=== PATIENT | male | born 1965 | race Caucasian/White ===

== ENCOUNTER → 2018-04-09 | Outpatient (CLI) | payer BC ==
--- NOTE | 2018-04-09 08:58 | US ---
EXAMINATION TYPE: US liver DATE OF EXAM: 04/09/2018 COMPARISON: NONE CLINICAL HISTORY: R74.0 Nonspecific elevation of levels of transamin. EXAM MEASUREMENTS: Liver Length: 19.1 cm Gallbladder Wall: Surgically absent CBD: 1.0 cm Right Kidney: 11.5 x 4.1 x 5.1 cm Pancreas: portions of head and tail obscured by bowel gas Liver: Increased attenuation, decreased visualization of vessels suggestive of fatty infiltrate, hep atomegally Gallbladder: Surgically absent Evidence for sonographic Wallace's sign: no CBD: wnl Right Kidney: wnl IMPRESSION: 1. Hepatomegaly with underlying fatty hepatic infiltration.
== END | disposition home or self-care (01) ==
LOC: RADUSWWP 07:26
PROVIDERS: ATTEND Family Medicine
DX: K76.0 Fatty (change of) liver, not elsewhere classified (principal)
CPT/HCPCS: 76705

== ENCOUNTER 2019-07-27 06:42 | Day surgery (SDC) | payer BC ==
[2019-07-24 09:21] VITALS: BMI 29.5
[~2019-07-27 06:42] MED LIST: LACTATED RINGERS 1,000 ML IV SCH; LIDOCAINE 1% 20 ML VIAL (10MG/ML) FOR IV START INTRADERMA PRN
[2019-07-27 07:08] VITALS: TEMP 98.4
[2019-07-27 07:17] LABS: Glucose,Whole Blood 148 mg/dL (75-99)
[2019-07-27] MEDS ORDERED: PROPOFOL 10 MG/ML 20 ML VIAL IV ONE (07:30)
[2019-07-27] MEDS ORDERED: LIDOCAINE 1% INJ 10MG/ML (20 ML MDV) ONE (07:30)
[2019-07-27 08:06] VITALS: RESP 16
--- NOTE | 2019-07-27 08:07 | P.PCN ---
Date of Procedure: 07/27/19 Description of Procedure: BRIEF HISTORY: Patient is a 54-year-old pleasant male scheduled for an elective colonoscopy as a part of evaluation after episode of diverticulitis. Recent episode of diverticulitis approximately 8 weeks ago treated with antibiotic therapy. He reports 2 colonoscopies in the past with polyps found on the first colonoscopy in the last colonoscopy occurring approximately 4 years ago. PROCEDURE PERFORMED: Colonoscopy with polypectomy. PREOPERATIVE DIAGNOSIS: Diverticulitis, personal history of colon polyps, last colonoscopy 4 years ago. ESTIMATED BLOOD LOSS: Minimal. IV sedation per Anesthesia. PROCEDURE: After informed consent was obtained, the patient, was brought into the endoscopy unit. IV sedation was administered by Anesthesia under continuous monitoring. Digital rectal examination was normal. Initially the Olympus CF-190 flexible video colonoscope was then inserted in the rectum, gradually advanced into the cecum without any difficulty. Careful examination was performed as the scope was gradually being withdrawn. Ileocecal valve and the appendiceal orifice were visualized and appeared normal. Prep was excellent. Mucosa of the cecum, ascending colon, transverse colon, descending colon, sigmoid colon, and rectum appeared normal. Multiple small diverticula noted throughout the entire colon. Diminutive 2 mm sigmoid polyp removed with cold forcep polypectomy. Small 3 mm sigmoid polyp removed with cold forcep polypectomy. Retroflexion was performed in the rectum and no lesions were seen, with mild internal hemorrhoids noted. The patient tolerated the procedure well. IMPRESSION: Mild pandiverticulosis. 2 small sessile sigmoid polyps removed with cold forcep polypectomy. RECOMMENDATIONS: Findings of this examination were discussed with the patient and his . Okay to resume high-fiber diet. Okay to resume medications. Anticipate repeat colonoscopy in 5 years for history of colon polyps, pathology from polypectomies.
[2019-07-27 08:16] VITALS: BP 131/77; PULSE 65
== END 2019-07-27 08:32 | disposition home or self-care (01) ==
LOC: ORWHC2ENDO 06:42
PROVIDERS: ATTEND Internal Medicine
DX: K63.5 Polyp of colon (principal); K64.8 Other hemorrhoids; Z86.010 Personal history of colon polyps; I10 Essential (primary) hypertension; E78.5 Hyperlipidemia, unspecified; E11.9 Type 2 diabetes mellitus without complications; Z79.84 Long term (current) use of oral hypoglycemic drugs; Z79.899 Other long term (current) drug therapy; Z88.6 Allergy status to analgesic agent
CPT/HCPCS: 88305; 45380; J2001; J2704

== ENCOUNTER 2022-02-04 06:58 | Emergency (ER) | payer BC ==
[2022-02-04 07:05] VITALS: TEMP 97.4
[2022-02-04] MEDS ORDERED: SODIUM CHLORIDE 0.9% 1,000 ML IV STA (07:29)
--- NOTE | 2022-02-04 07:50 | ED ---
Abdominal Pain HPI - General Chief Complaint: Abdominal Pain Stated Complaint: LT flank pain, diverticulitis Time Seen by Provider: 02/04/22 07:05 Source: patient, RN notes reviewed Mode of arrival: ambulatory Limitations: no limitations - History of Present Illness Initial Comments: This a 56-year-old male presents emergency Department with chief complaint of left-sided abdominal pain. Patient states that this started a few days ago he is placed on Cipro and Flagyl by PCP she has a long history of diverticulitis. Patient states pains into a slightly different. Patient has no dysuria no hematuria no urinary frequency no symptom diarrhea constipation or melanotic or hematochezia. Patient states that he had some nausea no vomiting denies any ch est pain shortness of breath patient had prior cholecystectomy 11 years ago. - Related Data Home Medications Medication Instructions Recorded Confirmed Atorvastatin [Lipitor] 40 mg PO DAILY 07/24/19 07/27/19 lisinopriL [Zestril] 10 mg PO QAM 07/24/19 07/27/19 metFORMIN HCL [Glucophage] 500 mg PO BID 07/24/19 07/27/19 Allergies Allergy/AdvReac Type Severity Reaction Status Date / Time ibuprofen Allergy Anaphylaxis Verified 02/04/22 07:01 Review of Systems ROS Statement: Those systems with pertinent positive or pertinent negative responses have been documented in the HPI. ROS Other: All systems not noted in ROS Statement are negative. Past Medical History Past Medical History: Diabetes Mellitus, Hyperlipidemia, Hypertension Additional Past Medical History / Comment(s): hx of diverticulitis, hx of colon polyps History of Any Multi-Drug Resistant Organisms: MRSA Date of last positivie culture/infection: 1988 MDRO Source:: left knee Past Surgical History: Cholecystectomy, Orthopedic Surgery Additional Past Surgical History / Comment(s): colonoscopy, left wrist, left knee Past Anesthesia/Blood Transfusion Reactions: Previous Problems w/ Anesthesia Additional Past Anesthesia/Blood Transfusion Reaction / Comment(s): "woke up during colonoscopy" Past Psychological History: No Psychological Hx Reported Past Alcohol Use History: Occasional Past Drug Use History: None Reported - Past Family History Father Family Medical History: Cancer Additional Family Medical History / Comment(s): lymphoma General Exam Limitations: no limitations General appearance: alert, in no apparent distress Head exam: Present: atraumatic, normocephalic, normal inspection Eye exam: Present: normal appearance, PERRL, EOMI. Absent: scleral icterus, conjunctival injection, periorbital swelling ENT exam: Present: normal exam, normal oropharynx, mucous membranes moist Neck exam: Present: normal inspection. Absent: tenderness, meningismus, lymphadenopathy Respiratory exam: Present: normal lung sounds bilaterally. Absent: respiratory distress, wheezes, rales, rhonchi, stridor Cardiovascular Exam: Present: regular rate, normal rhythm, normal heart sounds. Absent: systolic murmur, diastolic murmur, rubs, gallop, clicks GI/Abdominal exam: Present: soft, tenderness (Left-sided), normal bowel sounds. Absent: distended, guarding, rebound, rigid Back exam: Present: CVA tenderness (L). Absent: CVA tenderness (R) Course Vital Signs 02/04/22 07:01 Temperature 97.4 F L Pulse Rate 100 Respiratory 16 Rate Blood Pressure 137/88 O2 Sat by Pulse 98 Oximetry Medical Decision Making - Medical Decision Making Labs reviewed without significant findings. Patient CT does show mild unco njugated diverticulitis with no perforation no abscess. Patient does not request any further pain vitals are reviewed and are stable. Patient discharged on Cipro, Flagyl. Patient advised to have close follow-up return for any worsening or change of symptoms. - Lab Data Result diagrams: 02/04/22 07:30 02/04/22 07:30 Lab Results 02/04/22 02/04/22 02/04/22 Range/Units 07:30 07:30 07:30 WBC 8.9 (3.8-10.6) k/uL RBC 4.91 (4.30-5.90) m/uL Hgb 16.3 (13.0-17.5) gm/dL Hct 46.7 (39.0-53.0) % MCV 95.2 (80.0-100.0) fL MCH 33.1 (25.0-35.0) pg MCHC 34.8 (31.0-37.0) g/dL RDW 12.7 (11.5-15.5) % Plt Count 237 (150-450) k/uL MPV 8.1 Neutrophils % 71 % Lymphocytes % 15 % Monocytes % 8 % Eosinophils % 3 % Basophils % 0 % Neutrophils # 6.3 (1.3-7.7) k/uL Lymphocytes # 1.3 (1.0-4.8) k/uL Monocytes # 0.7 (0-1.0) k/uL Eosinophils # 0.3 (0-0.7) k/uL Basophils # 0.0 (0-0.2) k/uL Sodium 137 (137-145) mmol/L Potassium 4.0 (3.5-5.1) mmol/L Chloride 106 (98-107) mmol/L Carbon Dioxide 20 L (22-30) mmol/L Anion Gap 11 mmol/L BUN 11 (9-20) mg/dL Creatinine 0.89 (0.66-1.25) mg/dL Est GFR (CKD-EPI)AfAm >90 (>60 ml/min/1.73 sqM) Est GFR (CKD-EPI)NonAf >90 (>60 ml/min/1.73 sqM) Glucose 144 H (74-99) mg/dL Plasma Lactic Acid Juan 1.1 (0.7-2.0) mmol/L Calcium 8.9 (8.4-10.2) mg/dL Total Bilirubin 1.2 (0.2-1.3) mg/dL AST 33 (17-59) U/L ALT 26 (4-49) U/L Alkaline Phosphatase 50 (38-126) U/L Total Protein 7.3 (6.3-8.2) g/dL Albumin 4.3 (3.5-5.0) g/dL Amylase 38 (30-110) U/L Lipase 183 (23-300) U/L Urine Color Urine Appearance (Clear) Urine pH (5.0-8.0) Ur Specific Cana (1.001-1.035) Urine Protein (Negative) Urine Glucose (UA) (Negative) Urine Ketones (Negative) Urine Blood (Negative) Urine Nitrite (Negative) Urine Bilirubin (Negative) Urine Urobilinogen (<2.0) mg/dL Ur Leukocyte Esterase (Negative) Urine RBC (0-5) /hpf Urine WBC (0-5) /hpf Ur Squamous Epith Cells (0-4) /hpf Hyaline Casts (0-2) /lpf Urine Mucus (None) /hpf 02/04/22 Range/Units 07:36 WBC (3.8-10.6) k/uL RBC (4.30-5.90) m/uL Hgb (13.0-17.5) gm/dL Hct (39.0-53.0) % MCV (80.0-100.0) fL MCH (25.0-35.0) pg MCHC (31.0-37.0) g/dL RDW (11.5-15.5) % Plt Count (150-450) k/uL MPV Neutrophils % % Lymphocytes % % Monocytes % % Eosinophils % % Basophils % % Neutrophils # (1.3-7.7) k/uL Lymphocytes # (1.0-4.8) k/uL Monocytes # (0-1.0) k/uL Eosinophils # (0-0.7) k/uL Basophils # (0-0.2) k/uL Sodium (137-145) mmol/L Potassium (3.5-5.1) mmol/L Chloride (98-107) mmol/L Carbon Dioxide (22-30) mmol/L Anion Gap mmol/L BUN (9-20) mg/dL Creatinine (0.66-1.25) mg/dL Est GFR (CKD-EPI)AfAm (>60 ml/min/1.73 sqM) Est GFR (CKD-EPI)NonAf (>60 ml/min/1.73 sqM) Glucose (74-99) mg/dL Plasma Lactic Acid Juan (0.7-2.0) mmol/L Calcium (8.4-10.2) mg/dL Total Bilirubin (0.2-1.3) mg/dL AST (17-59) U/L ALT (4-49) U/L Alkaline Phosphatase (38-126) U/L Total Protein (6.3-8.2) g/dL Albumin (3.5-5.0) g/dL Amylase (30-110) U/L Lipase (23-300) U/L Urine Color Light Red Urine Appearance Clear (Clear) Urine pH 5.5 (5.0-8.0) Ur Specific Cana 1.034 (1.001-1.035) Urine Protein 2+ H (Negative) Urine Glucose (UA) Negative (Negative) Urine Ketones 2+ H (Negative) Urine Blood Negative (Negative) Urine Nitrite Negative (Negative) Urine Bilirubin Negative (Negative) Urine Urobilinogen 2.0 (<2.0) mg/dL Ur Leukocyte Esterase Small H (Negative) Urine RBC 6 H (0-5) /hpf Urine WBC 2 (0-5) /hpf Ur Squamous Epith Cells <1 (0-4) /hpf Hyaline Casts 10 H (0-2) /lpf Urine Mucus Many H (None) /hpf Disposition Clinical Impression: Diverticulitis Disposition: HOME SELF-CARE Condition: Stable Instructions (If sedation given, give patient instructions): Diverticulitis (ED), Diverticulitis Diet (ED) Additional Instructions: Please return to the Emergency Department if symptoms worsen or any other concerns. Is patient prescribed a controlled substance at d/c from ED?: No Referrals: Messi Lu DO [Primary Care Provider] - 1-2 days Time of Disposition: 09:27
[2022-02-04 07:52] LABS: Appearance,Urine Clear (Clear); Bilirubin,Urine Negative (Negative); Blood,Urine Negative (Negative); Color,Urine Light Red; Glucose,Urine (UA) Negative (Negative); Hyaline Casts,Urine 10 /lpf (0-2); Ketones,Urine 2+ (Negative); Leukocyte Esterase,Urine Small (Negative); Mucus,Urine Many /hpf; Nitrite,Urine Negative (Negative); PH, Urine 5.5 (5.0-8.0); Protein,Urine 2+ (Negative); RBC,Urine 6 /hpf (0-5); Specific Gravity,Urine 1.034 (1.001-1.035); Squamous Epithelial Cell,Urine <1 /hpf (0-4); WBC,Urine 2 /hpf (0-5)
[2022-02-04 08:01] LABS: Basophils % (A) 0 %; Eosinophils # (A) 0.3 k/uL (0-0.7); Eosinophils % (A) 3 %; HCT 46.7 % (39.0-53.0); HGB 16.3 gm/dL (13.0-17.5); Lymphocytes # (A) 1.3 k/uL (1.0-4.8); Lymphocytes % (A) 15 %; MCH 33.1 pg (25.0-35.0); MCHC 34.8 g/dL (31.0-37.0); MCV 95.2 fL (80.0-100.0); Mean Platelet Volume 8.1; Monocytes # (A) 0.7 k/uL (0-1.0); Monocytes % (A) 8 %; Neutrophils # (A) 6.3 k/uL (1.3-7.7); Neutrophils % (A) 71 %; Platelet Count 237 k/uL (150-450); RBC 4.91 m/uL (4.30-5.90); RDW 12.7 % (11.5-15.5); WBC 8.9 k/uL (3.8-10.6)
[2022-02-04 08:03] LABS: ALT 26 U/L (4-49); AST 33 U/L (17-59); African American GFR (CKD) >90 (>60 ml/min/1.73 sqM); Albumin 4.3 g/dL (3.5-5.0); Alkaline Phosphatase 50 U/L (38-126); Amylase 38 U/L (30-110); Anion Gap 11 mmol/L; Blood Urea Nitrogen 11 mg/dL (9-20); Calcium 8.9 mg/dL (8.4-10.2); Carbon Dioxide 20 mmol/L (22-30); Chloride 106 mmol/L (98-107); Glucose 144 mg/dL (74-99); Lipase 183 U/L (23-300); Non-African American GFR(CKD) >90 (>60 ml/min/1.73 sqM); Sodium 137 mmol/L (137-145); Total Bilirubin 1.2 mg/dL (0.2-1.3); Total Protein 7.3 g/dL (6.3-8.2)
--- NOTE | 2022-02-04 09:15 | CT ---
EXAMINATION TYPE: CT abdomen pelvis w con DATE OF EXAM: 02/04/2022 COMPARISON: None. HISTORY: LLQ abdominal pain with swelling, HX of diverticulitis CT DLP: 1452.8 mGycm, Automated Exposure Control for Dose Reduction was Utilized. CONTRAST: CT scan of the abdomen and pelvis is performed without oral and with IV Contrast, patient injected wi th 100 ml mL of Isovue 300. FINDINGS: LUNG BASES: No significant abnormality is appreciated. LIVER/GB: Visualized liver is heterogeneously hypodense consistent with diffuse fatty infiltration. C holecystectomy clips are seen. PANCREAS: No significant abnormality is seen. SPLEEN: Upper limits of normal in size measuring 13.3 cm long axis coronal image 61. ADRENALS: No significant abnormality is seen. KIDNEYS: Symmetric cortical atrophy uptake and excretion without hydronephrosis seen bilaterally. BOWEL: Stomach poorly distended and suboptimally evaluated. No suspicious small or large bowel dilata tion. Normal-appearing appendix from cecum. Scattered colonic diverticula. There is focal moderate il l-defined fluid and fat stranding in the left mid to lower abdomen along course of the mid to distal left colon with small amount of ill-defined fluid in the left paracolic gutter. No free air. No well- formed fluid collection or abscess. PROSTATE/SEMINAL VESICLES: Prostate gland mildly enlarged bulging of bladder base consistent with BPH . LYMPH NODES: No greater than 1cm abdominal or pelvic lymph nodes are appreciated. OSSEOUS STRUCTURES: Spinous straightened on sagittal images. Mild to moderate multilevel anterior and lateral spurring. Moderate axial joint space loss both hips. OTHER: Mild calcified plaque of the aorta extends into branch vessels. IMPRESSION: CT findings consistent with moderate uncomplicated acute diverticulitis as detailed above .
[2022-02-04 09:58] VITALS: BP 122/78; PULSE 80; RESP 18
== END 2022-02-04 09:58 | disposition home or self-care (01) ==
LOC: EC 06:58
DX: K57.92 Diverticulitis of intestine, part unspecified, without perforation or abscess without bleeding (principal); E11.9 Type 2 diabetes mellitus without complications; I10 Essential (primary) hypertension; E78.5 Hyperlipidemia, unspecified; Z79.84 Long term (current) use of oral hypoglycemic drugs; Z79.899 Other long term (current) drug therapy
CPT/HCPCS: 36415; 80053; 82150; 83605; 83690; 85025; 81001; 74177; 99284; 96360; 96361; Q9967

== ENCOUNTER → 2022-07-16 | Outpatient (CLI) | payer BC ==
--- NOTE | 2022-07-16 21:28 | MR ---
EXAMINATION TYPE: MR knee LT wo con DATE OF EXAM: 07/16/2022 COMPARISON: Outside left knee x-ray June 26, 2022 HISTORY: L knee pain, locking, and swelling for 3 months. History of knee surgery. TECHNIQUE: Multiplanar, multisequence imaging of the left knee is performed without IV contrast. FINDINGS: MEDIAL MENISCUS: Anterior and posterior horns are intact without tear. LATERAL MENISCUS: Horizontal cleavage tear anterior horn lateral meniscus sagittal image 8. CRUCIATE LIGAMENTS: The posterior cruciate ligament is intact and unremarkable. There is marked incre ased signal in the central fibers of the anterior cruciate ligament. COLLATERAL LIGAMENTS: The medial collateral ligament and lateral collateral ligament complex are inta ct and unremarkable. EXTENSOR MECHANISM: Visualized quadriceps and surgically repaired patellar tendons are intact. Suscep tibility artifact from prior surgery anterior tibial tuberosity. EFFUSION: Rarsq-ca-avpkeytp size suprapatellar joint effusion. POPLITEAL CYST: Small to moderate size popliteal/marshall cyst with some fluid extending inferiorly con sistent with leak. TRICOMPARTMENT SPACES: Moderate to severe narrowing and spurring patellofemoral compartment. Mild to moderate narrowing and moderate spurring medial and lateral tibiofemoral compartments. CARTILAGE: Significant chondromalacia patella with full-thickness cartilaginous loss along the inferi or posterior aspect of the patella. Some Cartilaginous loss lateral tibial femoral compartment is see n. BONE MARROW SIGNAL: No focal abnormal marrow signal is appreciated. OTHER: No additional significant abnormality is appreciated. IMPRESSION: 1. Tricompartment degenerative changes greatest patellofemoral compartment where there is fairly adva nced findings noted. 2. Horizontal cleavage tear anterior horn lateral meniscus. 3. Partial tearing of the anterior cruciate ligament. No complete retracted tear identified. 4. Small to moderate sized suprapatellar joint effusion. 5. Small to moderate-sized leaking popliteal cyst.
== END | disposition home or self-care (01) ==
LOC: RADMRIMAIN 10:53
PROVIDERS: ATTEND Orthopaedic Surgery
DX: M23.242 Derangement of anterior horn of lateral meniscus due to old tear or injury, left knee (principal); M17.12 Unilateral primary osteoarthritis, left knee; M25.462 Effusion, left knee; M71.22 Synovial cyst of popliteal space [Baker], left knee

== ENCOUNTER → 2022-08-20 | Outpatient (CLI) | payer BC ==
[2022-08-20 19:00] LABS: Anion Gap 12.3 mmol/L (10.00-18.00); Carbon Dioxide 26.1 mmol/L (20.0-27.5); Potassium 4.4 mmol/L (3.5-5.5)
[2022-08-20 19:02] LABS: Eosinophils # (A) 0.36 X 10*3/uL (0.04-0.35); Eosinophils % (A) 3.7 %; HCT 44.3 % (39.6-50.0); HGB 15.3 g/dL (13.0-17.0); Immature Grans, Automated 0.6 %; Lymphocytes # (A) 2.34 X 10*3/uL (0.90-5.00); Lymphocytes % (A) 23.8 %; MCH 32.8 pg (27.0-32.0); MCHC 34.5 g/dL (32.0-37.0); MCV 94.9 fL (80.0-97.0); Mean Platelet Volume 10.4 fL (9.5-12.2); Monocytes # (A) 0.87 X 10*3/uL (0.20-1.00); Monocytes % (A) 8.9 %; NRBC Per 100 WBC 0 /100 WBCS (0.0-0.0); Neutrophils # (A) 6.09 X 10*3/uL (1.80-7.70); Platelet Count 264 X 10*3/uL (140-440); RBC 4.67 X 10*6/uL (4.40-5.60); RDW 12.8 % (11.5-14.5); WBC 9.82 X 10*3/uL (4.50-10.00)
== END | disposition home or self-care (01) ==
LOC: LABPAT 10:18
PROVIDERS: ATTEND Orthopaedic Surgery
DX: Z01.818 Encounter for other preprocedural examination (principal); M23.92 Unspecified internal derangement of left knee
CPT/HCPCS: 36415; 80051; 85025; 93005

== ENCOUNTER 2022-08-30 11:54 | Day surgery (SDC) | payer BC ==
[2022-08-28 15:04] VITALS: BMI 29.1
--- NOTE | 2022-08-30 09:38 | HP ---
HISTORY AND PHYSICAL DATE OF SURGERY: 08/30/2022. HISTORY OF PRESENT ILLNESS: Gary Marc is a 57-year-old patient seen with progressive left knee pain. We discussed options for treatment. He elected to proceed with left knee arthroscopy. Consent was obtained. PAST MEDICAL HISTORY: [id number]-[id number] diabetes, hypertension, hyperlipidemia. PAST SURGICAL HISTORY: , cholecystectomy, left knee arthroscopy, surgery. DAILY MEDICATIONS: 1. Atorvastatin. 2. Lisinopril. 3. Metformin. ALLERGIES: Ibuprofen. SOCIAL HISTORY: Denies current tobacco use. PHYSICAL EVALUATION OF THE LEFT KNEE: Range of motion is -4/5 to 130, moderate effusion. Tenderness along the medial and lateral joint lines. Positive medial Amparo's. Positive lateral Amparo's. Ligaments stable. Hip rotation without pain. Distal neurovascular exam is intact. RADIOGRAPHS: Radiographs of the left knee revealed osteoarthritic changes. MRI of left knee revealed lateral meniscal tear, osteoarthritis, partial ACL tear, and popliteal cyst. IMPRESSION: 1. Internal derangement of left knee with lateral meniscal tear. 2. Hypertension. 3. Hyperlipidemia. 4. Ifs-mxzrlsn-ludrvgozx diabetes. PLAN: Left knee arthroscopy with partial lateral meniscectomy and debridement. MMODL / IJN: [id number] /
[~2022-08-30 11:54] MED LIST changes: +DEXAMETHASONE SOD PHOSPHATE 4 MG/ML 1 ML VIAL IV ONE; +HYDROmorphone 0.5 MG/0.5 ML SYRINGE IVP PRN; -LIDOCAINE 1% 20 ML VIAL (10MG/ML) FOR IV START INTRADERMA PRN; +ONDANSETRON 4 MG/2 ML VIAL IVP ONE
[2022-08-30 12:50] LABS: Glucose,Whole Blood 115 mg/dL (70-110)
[2022-08-30] MEDS ORDERED: MIDAZOLAM 2 MG/2 ML VIAL ONE (14:06)
[2022-08-30] MEDS ORDERED: ePHEDrine 50 MG/ML 1 ML VIAL ONE (14:06)
[2022-08-30] MEDS ORDERED: fentaNYL (PF) 50 MCG/ML 2 ML AMP ONE (14:06)
[2022-08-30] MEDS ORDERED: LIDOCAINE 2% INJ 20 MG/ML (2 ML VIAL) ONE (14:06)
[2022-08-30] MEDS ORDERED: PROPOFOL 10 MG/ML 20 ML VIAL IV ONE (14:06)
[2022-08-30] MEDS ORDERED: BUPIVACAINE (PF) 0.25% 30 ML VIAL SQ ONE ×2 (14:16→14:40)
[2022-08-30 14:59] VITALS: TEMP 97
--- NOTE | 2022-08-30 14:59 | P.OP ---
Date of Procedure: 08/30/22 Preoperative Diagnosis: Internal derangement left knee Postoperative Diagnosis: 1. Tear medial and lateral meniscus left knee 2. Reactive synovitis medial, lateral and suprapatellar compartments left knee Procedure(s) Performed: 1. Arthroscopic partial medial and lateral meniscectomy left knee 2. Arthroscopic partial synovectomy medial, lateral and suprapatellar compartments left knee Anesthesia: GETA, local Surgeon: Rajinder Fox Estimated Blood Loss (ml): 7 Pathology: none sent Condition: stable Disposition: PACU Indications for Procedure: 57-year-old patient seen with progressive left knee pain. After having treatment options discussed, he elected to proceed with arthroscopy. Operative Findings: See description of procedure Description of Procedure: Patient was taken to the operative suite. Patient underwent a general anesthetic by the department of anesthesia. Patient was given preoperative antibiotics. The left lower extremity was placed in a well-padded arthroscopic leg waters. The left leg was prepped and draped in the normal sterile orthopedic fashion. A lateral parapatellar and suprapatellar incision was made. Trochars were inserted. Arthroscopy was initiated. Suprapatellar pouch r evealed diffuse thick reactive synovitis. The patellofemoral joint appeared to articulate congruently. There with grade 2 chondromalacia of the patella without significant osteochondral tears present. The scope was guided into the medial gutter. No loose bodies or plica were identified. The scope was then guided into the medial compartment. A medial parapatellar incision was made. Trocar inserted followed by probe. There was a complex tear of the medial meniscus involving both the posterior horn and midbody. There were grade 1/2 chondromalacia changes of the medial compartment without significant osteochondral tears present. There was some thick reactive synovitis anteriorly. I performed a partial medial meniscectomy getting down to stable meniscal tissue. I performed a partial synovectomy decompressing the reactive synovitis. The residual meniscus was stable. The residual osteochondral surface was stable. Scope and probe were then guided into the intercondylar notch. Cruciates were identified, probed and found to be stable. The scope and probe were then guided into lateral compartment. There was a complex tear involving the anterior horn of lateral meniscus. There were grade 1/2 chondromalacia changes of the lateral tibial plateau. There was some reactive synovitis anteriorly. I performed a partial lateral meniscectomy getting down to stable meniscal tissue. I performed a partial synovectomy. The residual meniscus was stable. There was good decompression of the synovitis. The scope was in guided back into the suprapatellar compartment. I introduced a motorized shaver into the suprapatellar compartment. I debrided some piecemeal fragments of meniscus that I encountered. I performed a partial synovectomy. Shaver was removed. There was good decompression of the synovitis. I took one more look around the entire knee, no residual debris. Instruments were now removed from the joint. The joint was infiltrated with .25% Marcaine. Steri-Strips were applied to the portal sites. Sterile dressings were applied. The patient was placed into a MORGAN hose. No tourniquet was utilized. The patient was awakened, transferred to a bed and taken to recovery stable satisfactory condition.
[2022-08-30 15:52] VITALS: RESP 18
[2022-08-30 16:14] VITALS: BP 138/82; PULSE 91
== END 2022-08-30 16:25 | disposition home or self-care (01) ==
LOC: OR 11:54
PROVIDERS: ATTEND Orthopaedic Surgery
DX: M23.301 Other meniscus derangements, unspecified lateral meniscus, left knee (principal); M23.304 Other meniscus derangements, unspecified medial meniscus, left knee; E11.9 Type 2 diabetes mellitus without complications; Z79.84 Long term (current) use of oral hypoglycemic drugs; I10 Essential (primary) hypertension; E78.5 Hyperlipidemia, unspecified; Z90.49 Acquired absence of other specified parts of digestive tract; Z79.899 Other long term (current) drug therapy; Z87.891 Personal history of nicotine dependence; Z88.8 Allergy status to other drugs, medicaments and biological substances
CPT/HCPCS: 29880; J2250; J1100; J0690; J2405; J3010; J2704; J2001

== ENCOUNTER → 2025-02-08 | Outpatient (CLI) | payer BC ==
--- NOTE | 2025-02-08 20:09 | MR ---
EXAMINATION TYPE: MR shoulder LT wo con DATE OF EXAM: 02/08/2025 7:25 PM COMPARISON: Outside left shoulder x-ray February 03, 2025 CLINICAL INDICATION: Male, 59 years old with history of M25.512 left shoulder pain, Left shoulder francesca n x3 months, difficult to raise arm, IV Contrast: cc (None if empty) TECHNIQUE: Multiplanar, multisequence imaging of the left shoulder is performed without contrast. FINDINGS: Rotator Cuff: Mild increased signal distal infraspinatus tendon. More prominent increased signal dist al supraspinatus tendon. Heterogeneous subscapularis tendon with surrounding fluid. Rotator cuff musc le bulk is preserved. Acromioclavicular Joint: Moderate narrowing and mild to moderate spurring. Moderate inferior capsular hypertrophy. Underlying fat plane is maintained. Glenohumeral Joint: Moderate size joint effusion. No significant spurring. Labrum: Increased signal superior labrum consistent with tear. Biceps Tendon: The long head of biceps is in normal location within bicipital groove. Increased signa l in the intracapsular portion right before labral anchor is present. Bone marrow signal: No focal abnormal marrow signal is appreciated. Other: No additional significant abnormality is appreciated. IMPRESSION: 1. Mild tendinosis of the infraspinatus tendon. More prominent tendinosis of the subscapularis and osborn praspinatus tendons. 2. Subtle tendinosis/partial tearing of the long head of biceps tendon near the labral anchor. 3. Fakicywa-ow-zmyhhi degenerative changes are present as detailed above. 4. Superior labral tear is identified. [facility], , 02/08/2025 8:07 PM
== END | disposition home or self-care (01) ==
LOC: RADMRIMAIN 18:50
PROVIDERS: ATTEND Orthopaedic Surgery
DX: S43.432A Superior glenoid labrum lesion of left shoulder, initial encounter (principal); M67.814 Other specified disorders of tendon, left shoulder; M19.012 Primary osteoarthritis, left shoulder; X58.XXXA Exposure to other specified factors, initial encounter

== ENCOUNTER → 2025-03-03 | Outpatient (CLI) | payer BC ==
[2025-03-03 19:39] LABS: Anion Gap 12.7 mmol/L (4.00-12.00); Carbon Dioxide 25.3 mmol/L (21.6-31.8); Potassium 3.8 mmol/L (3.5-5.5)
[2025-03-03 19:51] LABS: Basophils % (A) 1.3 %; Eosinophils # (A) 0.21 X 10*3/uL (0.04-0.35); Eosinophils % (A) 2.6 %; HCT 44.4 % (39.6-50.0); HGB 15.3 g/dL (13.0-17.0); Lymphocytes # (A) 2.19 X 10*3/uL (0.90-5.00); Lymphocytes % (A) 27.5 %; MCH 33.1 pg (27.0-32.0); MCHC 34.5 g/dL (32.0-37.0); MCV 96.1 FL (80.0-97.0); Mean Platelet Volume 10.5 FL (9.5-12.2); Monocytes # (A) 0.82 X 10*3/uL (0.20-1.00); Monocytes % (A) 10.3 %; NRBC Per 100 WBC 0 X 10*3/uL (0.00-0.01); Neutrophils # (A) 4.61 X 10*3/uL (1.80-7.70); Neutrophils % (A) 57.9 %; Platelet Count 267 X 10*3/uL (140-440); RBC 4.62 X 10*6/uL (4.40-5.60); RDW 12.1 % (11.5-14.5); WBC 7.96 X 10*3/uL (4.50-10.00)
== END | disposition home or self-care (01) ==
LOC: LABWHC1 13:36
PROVIDERS: ATTEND Orthopaedic Surgery
DX: Z01.818 Encounter for other preprocedural examination (principal); M75.42 Impingement syndrome of left shoulder
CPT/HCPCS: 36415; 80051; 85025; 93005

== ENCOUNTER 2025-03-17 07:35 | Day surgery (SDC) | payer BC ==
[~2025-03-17 07:35] MED LIST changes: +ACETAMINOPHEN TAB 500 MG TAB PO PRN; -DEXAMETHASONE SOD PHOSPHATE 4 MG/ML 1 ML VIAL IV ONE; -LACTATED RINGERS 1,000 ML IV SCH; -ONDANSETRON 4 MG/2 ML VIAL IVP ONE; +Pre Op ABX Message 1 EACH MISC MISCELLANE ONE; +TRANEXAMIC 1,000 MG/100ML-NACL 1,000 MG in SALINE 1 100ML.BAG IVPB PRN; +fentaNYL (PF) 50 MCG/ML 2 ML AMP IV PRN
[2025-03-17] MEDS: IV FLUID CONTINUATION 1,000 ML IV ONE (07:51)
--- NOTE | 2025-03-17 08:15 | HP ---
HISTORY AND PHYSICAL DATE OF SURGERY: . HISTORY OF PRESENT ILLNESS: Gary Marc is a 59-year-old gentleman, seen with progressive left shoulder pain. After having treatment options discussed, he elected to proceed with left shoulder arthroscopy. Consent regarding procedure obtained. PAST MEDICAL HISTORY: Hypertension, hyperlipidemia, adc-ctxgaic-sfymjztiu diabetes. PAST SURGICAL HISTORY: Cholecystectomy, knee arthroscopy, wrist surgery. MEDICATIONS: 1. Lisinopril. 2. Metformin. 3. Atorvastatin. 4. Mounjaro. ALLERGIES: Ibuprofen. SOCIAL HISTORY: Denies current tobacco use. PHYSICAL EXAMINATION: Evaluation of his left shoulder, flexion is 140 degrees. Abduction is 90 degrees. External rotation is 40 degrees with pain and weakness. Tenderness along the anterolateral acromion, acromioclavicular joint rotator cuff along the biceps tendon, and impingement is positive at 90 degrees. Drop-arm sign is positive. Distal neurovascular exam is intact. IMAGING STUDIES: Left shoulder radiographs revealed a type 2 acromion, evidence for acromioclavicular joint osteoarthritis. MRI of left shoulder, rotator cuff tendinitis, partial biceps tear, labral tear, acromioclavicular joint osteoarthritis. IMPRESSION: 1. Left shoulder impingement with labral tear. 2. Left shoulder partial biceps tendon tear. 3. Left shoulder acromioclavicular joint osteoarthritis. PLAN: Left shoulder arthroscopy with subacromial decompression, labral repair versus debridement, Jose and biceps tenodesis. MMODL / IJN: [id number] /
[2025-03-17 08:16] LABS: Glucose,Whole Blood 122 mg/dL (70-110)
[2025-03-17] MEDS: LACTATED RINGERS 1,000 ML IV SCH (08:17)
[2025-03-17] MEDS: ONDANSETRON 4 MG/2 ML VIAL IVP ONE (08:23)
[2025-03-17] MEDS: MIDAZOLAM 2 MG/2 ML VIAL IV STA (08:28)
[2025-03-17] MEDS: DEXAMETHASONE SOD PHOSPHATE 4 MG/ML 1 ML VIAL IV ONE (08:32)
--- NOTE | 2025-03-17 08:49 | P.ANPRN ---
Procedure Note - Anesthesia - Nerve Block Performed Left Interscalene Single Date of Procedure: 03/17/25 Procedure Start Time: 08:28 Procedure Stop Time: 08:38 Location of Patient: PreOp Indication: Acute Post-Operative Pain, Requested by Surgeon Sedation Type: Sedate with meaningful contact maintained Preparation: Sterile Prep Position: Supine Needle Types: Pajunk Needle Gauge: 21 Ultrasound used to visualize needle placement: Yes Ultrasound used to observe medication spread: Yes Injectate: 0.5% Ropivacaine (see comment for volume) (22 mls with Decadron 4 mg) Blood Aspirated: No Pain Paresthesia on Injection Noted: No Resistance on Injection: Normal Image Stored and Saved: Yes Events: Uneventful and Well Tolerated (Nerve stimulator was used at 0.5 Amp plus ultrasound)
[2025-03-17] MEDS ORDERED: fentaNYL (PF) 50 MCG/ML 2 ML AMP ONE (09:01)
[2025-03-17] MEDS ORDERED: PHENYLEPHRINE 10 MG/ML VIAL ONE (09:01)
[2025-03-17] MEDS ORDERED: LIDOCAINE 1% INJ 10MG/ML (20 ML MDV) ONE (09:01)
[2025-03-17] MEDS ORDERED: ePHEDrine 50 MG/ML 1 ML VIAL ONE (09:01)
[2025-03-17] MEDS ORDERED: ROPIVACAINE 5 MG/ML 30 ML VIAL ONE (09:01)
[2025-03-17] MEDS ORDERED: DEXAMETHASONE SOD PHOSPHATE 4 MG/ML 1 ML VIAL ONE (09:01)
[2025-03-17] MEDS ORDERED: SUCCINYLCHOLINE CHLORIDE 200 MG/10 ML VIAL IV ONE (09:01)
[2025-03-17] MEDS ORDERED: PROPOFOL 10 MG/ML 20 ML VIAL IV ONE (09:01)
[2025-03-17] MEDS ORDERED: MIDAZOLAM 2 MG/2 ML VIAL ONE (09:01)
[2025-03-17] MEDS: ceFAZolin 2 GM in DEXTROSE 5% IN WATER 50 ML IVPB PRN (09:06)
--- NOTE | 2025-03-17 10:50 | P.OP ---
Date of Procedure: 03/17/25 Preoperative Diagnosis: Left shoulder impingement Postoperative Diagnosis: 1. Left shoulder rotator cuff tear 2. Left shoulder impingement 3. Left shoulder partial long head biceps tendon tear 4. Left shoulder acromioclavicular joint osteoarthritis 5. Left shoulder superficial labral tear Procedure(s) Performed: 1. Left shoulder arthroscopic rotator cuff repair 2. Left shoulder arthroscopic subacromial decompression 3. Left shoulder arthroscopic biceps tenodesis 4. Left shoulder arthroscopic Jose procedure 5. Left shoulder arthroscopic debridement labral tear Implants: 2Arthrex 4.75 swivel lock anchors Anesthesia: GETA, regional (Interscalene block) Surgeon: Rajinder Fox Millwright Instructor #1: Leeroy Jimenez Estimated Blood Loss (ml): 10 Pathology: none sent Condition: stable Disposition: PACU Indications for Procedure: 59-year-old gentleman seen with progressive left shoulder pain. After having treatment options discussed, he elected to proceed with arthroscopy. Operative Findings: See description of procedure Description of Procedure: Patient underwent an interscalene block by department of anesthesia. The patient was then taken to the operative suite. The patient underwent a general anesthetic by the department of anesthesia. The patient was placed into a lateral position and secured. There was appropriate padding of the bony prominence. Left shoulder was then prepped and draped in normal sterile orthopedic fashion. We placed the extremity in 10 pounds of longitudinal traction. A posterior incision was now made for a posterior working portal site. The trocar and cannula were inserted into the glenohumeral joint. Arthroscopy was initiated. Spinal needle was now inserted anteriorly, to ascertain the anterior working portal site. An incision was now made in that area, a trocar was inserted followed by a probe. There was superficial tearing of the superior labrum. There was no significant chondromalacia present. There was some partial tearing of the long head biceps tendon. I used a motorized shaver and debrided out the superficial labral tear getting down to stable labral tissue. I inserted a cannula through the anterior portal site. I passed a loop and tack stitch through the biceps tendon. I released the biceps tendon from the superior labral anchor. With the assistance of a Julio Cesar CASANOVA punch hole at t he interval for insertion of an anchor. The suture line was not passed through the eyelet of an Arthrex 4.75 swivel lock anchor. I placed the eyelet into the prepunched hole. I held it in position while Julio Cesar CASANOVA tension the suture and deployed the anchor with good fixation noted. The residual suture limb was now clipped. We had a stable appearing biceps tenodesis. The residual labrum w as probed and was found to be stable. Instruments were now removed from the glenohumeral joint. Utilizing the posterior working portal site, the trocar and cannula were inserted into the subacromial space. Arthroscopy initiated. I made an incision 2 fingerbreadths lateral to the acromion. I introduced my trocar followed by my ArthroCare ablator. I now began ablating thick subacromial bursal tissue, which exposed the undersurface of the anterior acromion. There was diminished subacromial space. There was a very prominent anterior acromion. A motorized bur was introduced and a subacromial decompression was performed. I also excised some osteophytes off the inferior aspect of the distal clavicle. The AC joint was visualized and noted to be fairly arthritic. The motorized bur was introduced in the anterior portal site and a Jose procedure was performed without difficulty, decompressing the AC joint nicely. I turned my attention to the rotator cuff. There was a 1 cm rotator cuff tear. There was some delamination as well. I debrided the margins getting down to stable tendon tissue. The defect/tear measured about 1.5 cm and was freely mobile over the footprint. I abraded the footprint with a motorized bur. With the assistance of Julio Cesar CASANOVA past 3 inverted mattress sutures through good bites of rotator cuff tendon. I punched a hole in the footprint area for insertion of an anchor. All 6 limbs of suture were passed through the eyelet of an Arthrex 4.75 swivel lock anchor. I now placed the eyelet into the prepunch hole. I held it in position while Julio Cesar CASANOVA tension all 6 limbs of suture and deployed the anchor with good fixation noted. All residual suture limbs were now clipped. We had good compression of the tendon along the entire footprint. Instruments now removed from the portal sites. All portal sites were approximated with nylon suture. Sterile dressings were applied followed by a shoulder immobilizer. Leeroy CASANOVA assisted in this complex case. The patient was awakened, transferred to a bed, and taken to recovery in stable condition.
[2025-03-17 10:52] VITALS: TEMP 96.9
[2025-03-17 11:05] VITALS: RESP 16
[2025-03-17 11:10] LABS: Glucose,Whole Blood 135 mg/dL (70-110)
[2025-03-17 11:52] VITALS: BP 130/81; PULSE 88
== END 2025-03-17 12:21 | disposition home or self-care (01) ==
LOC: OR 07:35
PROVIDERS: ATTEND Orthopaedic Surgery
DX: M75.112 Incomplete rotator cuff tear or rupture of left shoulder, not specified as traumatic (principal); S43.432A Superior glenoid labrum lesion of left shoulder, initial encounter; S46.112A Strain of muscle, fascia and tendon of long head of biceps, left arm, initial encounter; M19.012 Primary osteoarthritis, left shoulder; M75.42 Impingement syndrome of left shoulder; M25.712 Osteophyte, left shoulder; G89.18 Other acute postprocedural pain; I10 Essential (primary) hypertension; E11.9 Type 2 diabetes mellitus without complications; E78.5 Hyperlipidemia, unspecified; Z79.85 Long-term (current) use of injectable non-insulin antidiabetic drugs; Z79.84 Long term (current) use of oral hypoglycemic drugs; Z79.899 Other long term (current) drug therapy; Z87.891 Personal history of nicotine dependence; Z88.6 Allergy status to analgesic agent
CPT/HCPCS: 29827; 29828; 29826; 29824; 64415; C1894; C1713 ×3; J2250; J0330; J1100; J0690; J2405; J2003; J3010; J2795; J2704; J2371